=== PATIENT | female | born 1955 | race Hispanic/Latino ===

== ENCOUNTER → 2018-11-05 | Outpatient (CLI) | payer OTHER ==
[~2018-11-05] MED LIST: ALIGN4 MG PO
--- NOTE | 2018-11-05 08:56 | Diagnostic Imaging Report ---
Abdominal ultrasound. History: Epigastric pain. Comparison: None available. Discussion: Transverse and longitudinal images of the abdomen were obtained demonstrating a liver of normal size but diffusely increased echogenicity measuring 12.9 cm in length. There is no focal hepatic abnormality. The portal vein is patent with hepatopetal flow and is within normal limits measuring 8 mm in diameter. The biliary tree is within normal limits with the common bile duct measuring 2 mm in diameter. The gallbladder is absent. The kidneys are normal in size and echogenicity bilaterally without evidence of hydronephrosis, stones, or mass. The right kidney measures 9.9 cm and the left kidney measures 9.3 cm in length. The spleen is normal in size and appearance measuring 8.0 cm in length. The pancreatic head and body are visualized and are normal in appearance. The abdominal aorta and IVC are within normal limits. There is no evidence of free fluid. IMPRESSION: 1. Diffuse fatty infiltration of the liver. 2. Status post cholecystectomy. Otherwise unremarkable abdominal ultrasound. Signed by: Uri Gallardo on 11/05/2018 8:52 AM
--- NOTE | 2018-11-05 09:00 | Diagnostic Imaging Report ---
Pelvic ultrasound. History: Abdominal pain. Comparison: None available. Discussion: Transabdominal evaluation of the pelvis was performed in the transverse and longitudinal planes. The bladder is normal in appearance, with volume of 26 cc. Bilateral ureteral jets are identified. The uterus and adnexa are absent. There is no evidence of an adnexal mass. There is no evidence of free fluid. IMPRESSION: No abnormality identified. Signed by: Uri Gallardo on 11/05/2018 8:57 AM
== END ==
LOC: US 07:07
PROVIDERS: ATTEND Internal Medicine Gastroenterology
DX: R10.13 Epigastric pain (principal)
CPT/HCPCS: 76700; 76856

== ENCOUNTER → 2018-11-17 | Day surgery (SDC) | payer OTHER ==
[~2018-11-17] MED LIST changes: +CARAFATE1 GM/10 ML PO; +FENTANYL CITRATE/PF 100MCG/2 ML INJ ONE; +LANSOPRAZOLE30 MG PO; +LIDOCAINE HCL 2% LOCAL INJ 5 ML SDV VIAL INJ ONE; +MIDAZOLAM HCL 2 MG/2 ML VIAL ONE; +PROPOFOL IV EMULSION 10 MG/ML 50 ML VIAL ONE
--- OUTSIDE RECORDS SUMMARY | 2018-11-17 05:31 | XMS REPORT ---
Author Author Admin, [facility] Address [facility] [address] [place] [address] Phone ;[phone] Allergies, Adverse Reactions, Alerts Allergy Name Reaction Description Start Date Severity Status Provider No Known Allergies Maylin Mcgovern MA Conditions or Problems Problem Name Problem Code Onset Date Status Entry Date Provider Comment Standard Description Annotate Chest discomfort, atypical 786.59 Active Caroline Noriega MD Other chest pain tingling pain radiates from neck to chest, then a cooling sensation radiates out to both arms Neck pain, acute 723.1 Active Caroline Noriega MD Cervicalgia BMI 30.0-30.9 Active Caroline Noriega MD Body Mass Index 30.0-30.9, adult Obesity Active Caroline Noriega MD Obesity, unspecified Abdominal pain 789.00 Active Caroline Noriega MD Abdominal pain, unspecified site Abnormal weight loss 783.21 Active Caroline Noriega MD Loss of weight Arthralgias 719.40 Active Caroline Noriega MD Pain in joint, site unspecified Bone pain 733.90 Active Caroline Noriega MD Disorder of bone and cartilage, unspecified 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 Active Caroline Noriega MD Carcinoma in situ of skin, site unspecified Squamous Cell Carcinoma of the chest Family history of carcinoma of kidney V16.51 Active Caroline Noriega MD Family history of malignant neoplasm of kidney Sister at age 52 Night sweats 780.8 Active Caroline Noriega MD Generalized hyperhidrosis Actinic keratosis 702.0 Active Caroline Noriega MD Actinic keratosis Insomnia, chronic 780.52 Active Caroline Noriega MD Insomnia, unspecified Acid reflux 530.81 Active Caroline Noriega MD Esophageal reflux Black stools 578.1 Active Caroline Noriega MD Blood in stool Itching of skin 698.9 Active Caroline Noriega MD Unspecified pruritic disorder Atrophic vaginitis 627.3 Active Caroline Noriega MD Postmenopausal atrophic vaginitis Hemorrhoids 455.6 Active Caroline Noriega MD Unspecified hemorrhoids without mention of complication Diverticulitis, colon 562.11 Active Caroline Noriega MD Diverticulitis of colon without mention of hemorrhage DEPRESSIVE DISORDER, MAJOR, RECURRENT EPISODE, MODERATE Active Lazaro Zavala FUR WEIGHER Major depressive disorder, recurrent episode, moderate degree R/O Persistent depressive disorder 301.12 Active Lazaro Zavala FUR WEIGHER Chronic depressive personality disorder Dry skin 701.1 Active Caroline Noriega MD Keratoderma, acquired Neoplasm, skin, uncertain behavior 238.2 Active Caroline Noriega MD Neoplasm of uncertain behavior of skin Allergic dermatitis 692.9 Active Caroline Noriega MD Contact dermatitis and other eczema, unspecified cause Vitamin D deficiency 268.9 Active Caroline Noriega MD Unspecified vitamin D deficiency Ankle deformity 736.70 Active Caroline Noriega MD Unspecified deformity of ankle and foot, acquired Oversupination of both ankles Anxiety with depression 300.4 Active Caroline Noriega MD Dysthymic disorder Knee joint pain > 3 months, bilateral 719.46 Active Caroline Noriega MD Pain in joint involving lower leg Dry mouth 527.7 Active Caroline Noriega MD Disturbance of salivary secretion Onychomycosis, toenails 110.1 Active Caroline Noriega MD Dermatophytosis of nail right great toenail black (aspergillus?) and left dystrophic Moore's esophagus 530.85 Active Caroline Noriega MD Moore's esophagus Hiatal hernia 553.3 Active Caroline Noriega MD Diaphragmatic hernia without mention of obstruction or gangrene Stenosis of cervix 622.4 Active Caroline Noriega MD Stricture and stenosis of cervix Colon polyps 211.3 Active Caroline Noriega MD Benign neoplasm of colon Fatty liver 571.8 Active Caroline Noriega MD Other chronic nonalcoholic liver disease Screening mammogram V76.12 Active Caroline Noriega MD Other screening mammogram [id number] exam V72.3 Active Caroline Noriega MD Special investigations and examinations - Gynecological examination Diverticulitis, acute 562.11 Inactive Caroline Noriega MD Diverticulitis of colon without mention of hemorrhage Diverticulitis, acute ICD-562.11 Inactive Caroline Noriega MD Abdominal pain, generalized 789.07 Inactive Caroline Noriega MD Abdominal pain, generalized Abdominal pain, right upper quadrant ICD-789.01 Inactive Caroline Noriega MD Diarrhea ICD-787.91 Inactive Caroline Noriega MD Blood in stool 578.1 Inactive Caroline Noriega MD Blood in stool BMI 28.0-28.9 Inactive Caroline Noriega MD Overweight Inactive Caroline Noriega MD Flank pain, left ICD-789.09 Inactive Caroline Noriega MD Dysuria 788.1 Inactive Caroline Noriega MD Dysuria Dysuria ICD-788.1 Inactive Caroline Noriega MD Bruise 924.9 Inactive Caroline Noriega MD Contusion of unspecified site Bruise ICD-924.9 Inactive Caroline Noriega MD Chest pain, intermittent ICD-786.50 Inactive Caroline Noriega MD Eye pain, left ICD-379.91 Inactive Caroline Noriega MD Gastroparesis 536.3 Inactive Caroline Noriega MD Gastroparesis Gastroparesis ICD-536.3 Inactive Caroline Noriega MD Hair loss ICD-704.00 Inactive Caroline Noriega MD Diabetes, Screening for V77.1 Inactive Azar Solano MD Screening for diabetes mellitus Diabetes, Screening for ICD-V77.1 Inactive Azar Solano MD UTI ICD-599.0 Inactive Caroline Noriega MD Ingrown toenail, left ICD-703.0 Inactive Azar Solano MD Thickened endometrium 793.5 Inactive Caroline Noriega MD Nonspecific (abnormal) findings on radiological and other examination of genitourinary organs BMI 32.0-32.9 Inactive Caroline Noriega MD Contact dermatitis due to poison carter ICD-692.6 Inactive Azar Solano MD Obesity Inactive Caroline Noriega MD Thyroid stimulating hormone, abnormal ICD-246.9 Inactive Caroline Noriega MD Dermatitis ICD-692.9 Inactive Azar Solano MD Dysuria 788.1 Inactive Caroline Noriega MD Dysuria Dysuria ICD-788.1 Inactive Caroline Noriega MD Fatigue ICD-780.79 Inactive Caroline Noriega MD Gastritis ICD-535.50 Inactive Caroline Noriega MD Pelvic pain, right ICD-789.09 Inactive Caroline Noriega MD Abdominal pain, right upper quadrant 789.01 Resolved Caroline Noriega MD Abdominal pain, right upper quadrant Diarrhea 787.91 Resolved Caroline Noriega MD Diarrhea BMI 28.0-28.9 Resolved Caroline Noriega MD Body Mass Index 28.0-28.9, adult Overweight Resolved Caroline Noriega MD Overweight Flank pain, left 789.09 Resolved Caroline Noriega MD Abdominal pain, other specified site; multiple sites Chest pain, intermittent 786.50 Resolved Caroline Noriega MD Unspecified chest pain Eye pain, left 379.91 Resolved Caroline Noriega MD Pain in or around eye Hair loss 704.00 Resolved Caroline Noriega MD Alopecia, unspecified UTI 599.0 Resolved Caroline Noriega MD Urinary tract infection, site not specified Ingrown toenail, left 703.0 Resolved Azar Solano MD Ingrowing nail BMI 32.0-32.9 Resolved Caroline Noriega MD Body Mass Index 32.0-32.9, adult Contact dermatitis due to poison carter 692.6 Resolved Azar Solano MD Contact dermatitis and other eczema due to plants [except food] Obesity Resolved Caroline Noriega MD Obesity, unspecified Thyroid stimulating hormone, abnormal 246.9 Resolved Caroline Noriega MD Unspecified disorder of thyroid Dermatitis 692.9 Resolved Azar Solano MD Contact dermatitis and other eczema, unspecified cause nonspecific papules on hands and legs Fatigue 780.79 Resolved Caroline Noriega MD Other malaise and fatigue Gastritis 535.50 Resolved Caroline Noriega MD Unspecified gastritis and gastroduodenitis, without mention of hemorrhage Intermittent, with spicy food, not on medication Pelvic pain, right 789.09 Resolved Caroline Noriega MD Abdominal pain, other specified site; multiple sites Medication List Medication Instructions Start Date Stop Date Generic Name NDC Status Provider Patient Instruction CITALOPRAM HYDROBROMIDE 10 MG/5ML ORAL SOLUTION Take 10mL (20mg) By Mouth daily for anxiety CITALOPRAM HYDROBROMIDE 35196878440 Active Caroline Noriega MD Active CITALOPRAM HYDROBROMIDE 20 MG ORAL TABLET 1 tab by mouth daily for anxiety CITALOPRAM HYDROBROMIDE 82135024551 Active Caroline Noriega MD Active CIPRO 500 MG ORAL TABLET take one By Mouth Twice a Day for diverticulitis CIPRO 500 MG ORAL TABLET 410145 CIPROFLOXACIN HCL Inactive METRONIDAZOLE 500 MG ORAL TABLET Take one By Mouth Three Times a Day for 10 days for diverticulitis METRONIDAZOLE 500 MG ORAL TABLET 612983 METRONIDAZOLE Inactive MIRALAX ORAL POWDER Take one dose mixed with water or juice By Mouth daily As Needed for constipation MIRALAX ORAL POWDER 736800 POLYETHYLENE GLYCOL 3350 Inactive LANSOPRAZOLE 30 MG ORAL CAPSULE DELAYED RELEASE Take one tablet By Mouth Every Day LANSOPRAZOLE 30 MG ORAL CAPSULE DELAYED RELEASE 031353 LANSOPRAZOLE Inactive LANSOPRAZOLE 30 MG ORAL CAPSULE DELAYED RELEASE TK 1 C PO QD LANSOPRAZOLE 30 MG ORAL CAPSULE DELAYED RELEASE 424862 LANSOPRAZOLE Inactive FLUOROURACIL 5 % EXTERNAL CREAM APPLY TOPICALLY TO AFFECTED AREA TWICE A DAY FOR 2 WEEKS FLUOROURACIL 5 % EXTERNAL CREAM 805595 FLUOROURACIL Inactive FLUOROURACIL 5 % EXTERNAL CREAM APPLY TOPICALLY TO AFFECTED AREA TWICE A DAY FOR 2 WEEKS FLUOROURACIL 5 % EXTERNAL CREAM 241420 FLUOROURACIL Inactive ALIGN 4 MG ORAL CAPSULE One By Mouth daily for stomach ALIGN 4 MG ORAL CAPSULE PROBIOTIC PRODUCT Inactive VITAMIN B12 TABLET VITAMIN B12 TABLET CYANOCOBALAMIN TABS Inactive VITAMIN D3 TABLET VITAMIN D3 TABLET CHOLECALCIFEROL TABS Inactive TRIAMCINOLONE ACETONIDE 0.1 % EXTERNAL CREAM apply to affected area twice a day As Needed for itching and rash TRIAMCINOLONE ACETONIDE 0.1 % EXTERNAL CREAM 8334887 TRIAMCINOLONE ACETONIDE Inactive PANTOPRAZOLE SODIUM 40 MG ORAL TABLET DELAYED RELEASE Take one By Mouth Every Morning for acid reflux PANTOPRAZOLE SODIUM 40 MG ORAL TABLET DELAYED RELEASE 628100 PANTOPRAZOLE SODIUM Inactive ALIGN 4 MG ORAL CAPSULE One By Mouth daily ALIGN 4 MG ORAL CAPSULE PROBIOTIC PRODUCT Inactive LANSOPRAZOLE 30 MG ORAL CAPSULE DELAYED RELEASE 1 tab By Mouth Every day LANSOPRAZOLE 30 MG ORAL CAPSULE DELAYED RELEASE 305751 LANSOPRAZOLE Inactive MACROBID 100 MG ORAL CAPSULE 1 by mouth twice a day MACROBID 100 MG ORAL CAPSULE 7045303 NITROFURANTOIN MONOHYD MACRO Inactive ACETAMINOPHEN-CODEINE #3 300-30 MG ORAL TABLET 1 tab By Mouth Every 4 hrs As Needed pain ACETAMINOPHEN-CODEINE #3 300-30 MG ORAL TABLET ACETAMINOPHEN-CODEINE Inactive MEDROL 4 MG ORAL TABLET THERAPY PACK use as directed MEDROL 4 MG ORAL TABLET THERAPY PACK 612436 METHYLPREDNISOLONE Inactive TRIAMCINOLONE ACETONIDE 0.1 % EXTERNAL CREAM apply to affected area twice a day As Needed for rash TRIAMCINOLONE ACETONIDE 0.1 % EXTERNAL CREAM 8904494 TRIAMCINOLONE ACETONIDE Inactive CIPRO 500 MG ORAL TABLET take one By Mouth Twice a Day for diverticulitis CIPROFLOXACIN HCL 57856215008 No Longer Active Caroline Noriega MD Active METRONIDAZOLE 500 MG ORAL TABLET Take one By Mouth Three Times a Day for 10 days for diverticulitis METRONIDAZOLE 96111075489 No Longer Active Caroline Noriega MD Active MIRALAX ORAL POWDER Take one dose mixed with water or juice By Mouth daily As Needed for constipation POLYETHYLENE GLYCOL 3350 [id number] No Longer Active Caroline Noriega MD Active LANSOPRAZOLE 30 MG ORAL CAPSULE DELAYED RELEASE Take one tablet By Mouth Every Day LANSOPRAZOLE 40994874979 No Longer Active Caroline Noriega MD Active LANSOPRAZOLE 30 MG ORAL CAPSULE DELAYED RELEASE TK 1 C PO QD LANSOPRAZOLE 61848105908 No Longer Active Caroline Noriega MD Active FLUOROURACIL 5 % EXTERNAL CREAM APPLY TOPICALLY TO AFFECTED AREA TWICE A DAY FOR 2 WEEKS FLUOROURACIL 36757075895 No Longer Active Caroline Noriega MD Active FLUOROURACIL 5 % EXTERNAL CREAM APPLY TOPICALLY TO AFFECTED AREA TWICE A DAY FOR 2 WEEKS FLUOROURACIL 22866282165 No Longer Active Caroline Noriega MD Active ALIGN 4 MG ORAL CAPSULE One By Mouth daily for stomach PROBIOTIC PRODUCT 38113541407 No Longer Active Caroline Noriega MD Active VITAMIN B12 TABLET CYANOCOBALAMIN TABS 38016002436 No Longer Active Caroline Noriega MD Active VITAMIN D3 TABLET CHOLECALCIFEROL TABS 69009595858 No Longer Active Caroline Noriega MD Active TRIAMCINOLONE ACETONIDE 0.1 % EXTERNAL CREAM apply to affected area twice a day As Needed for itching and rash TRIAMCINOLONE ACETONIDE 78254144401 No Longer Active Caroline Noriega MD Active PANTOPRAZOLE SODIUM 40 MG ORAL TABLET DELAYED RELEASE Take one By Mouth Every Morning for acid reflux PANTOPRAZOLE SODIUM 39046127916 No Longer Active Caroline Noriega MD Active ALIGN 4 MG ORAL CAPSULE One By Mouth daily PROBIOTIC PRODUCT 40804899592 No Longer Active Caroline Noriega MD Active LANSOPRAZOLE 30 MG ORAL CAPSULE DELAYED RELEASE 1 tab By Mouth Every day LANSOPRAZOLE 88008977086 No Longer Active Caroline Noriega MD Active MACROBID 100 MG ORAL CAPSULE 1 by mouth twice a day NITROFURANTOIN MONOHYD MACRO 03854827591 No Longer Active Azar Solano MD Active PANTOPRAZOLE SODIUM 40 MG ORAL TABLET DELAYED RELEASE 1 tab By Mouth Every day PANTOPRAZOLE SODIUM 75929759549 No Longer Active Azar Solano MD Active ACETAMINOPHEN-CODEINE #3 300-30 MG ORAL TABLET 1 tab By Mouth Every 4 hrs As Needed pain ACETAMINOPHEN-CODEINE 20474567942 No Longer Active Azar Solano MD Active MEDROL 4 MG ORAL TABLET THERAPY PACK use as directed METHYLPREDNISOLONE 90217189242 No Longer Active Azar Solano MD Active TRIAMCINOLONE ACETONIDE 0.1 % EXTERNAL CREAM apply to affected area twice a day As Needed for rash TRIAMCINOLONE ACETONIDE 39844788338 No Longer Active Azar Solano MD Active Vital Signs Date Name Value Unit Range Description blood pressure, diastolic 78 mm[Hg] BP muñoz blood pressure, systolic 122 mm[Hg] BP sys height E&M 55 [in_us] Bdy height pulse rate E&M 89 /min Heart rate respiratory rate E&M 16 /min Resp rate temperature E&M 98.0 [degF] Body temperature weight E&M 130.20 [lb_av] Weight Measured blood pressure, diastolic 80 mm[Hg] BP muñoz blood pressure, systolic 135 mm[Hg] BP sys height E&M 55 [in_us] Bdy height pulse rate E&M 74 /min Heart rate respiratory rate E&M 18 /min Resp rate temperature E&M 97.8 [degF] Body temperature weight E&M 130.38 [lb_av] Weight Measured blood pressure, diastolic 87 mm[Hg] BP muñoz blood pressure, systolic 152 mm[Hg] BP sys height E&M 55 [in_us] Bdy height pulse rate E&M 85 /min Heart rate respiratory rate E&M 21 /min Resp rate temperature E&M 98.1 [degF] Body temperature weight E&M 136.20 [lb_av] Weight Measured blood pressure, diastolic 84 mm[Hg] BP muñoz blood pressure, systolic 126 mm[Hg] BP sys height E&M 55 [in_us] Bdy height pulse rate E&M 84 /min Heart rate respiratory rate E&M 17 /min Resp rate temperature E&M 98.0 [degF] Body temperature weight E&M 138.40 [lb_av] Weight Measured blood pressure, diastolic 75 mm[Hg] BP muñoz blood pressure, systolic 125 mm[Hg] BP sys height E&M 55 [in_us] Bdy height pulse rate E&M 68 /min Heart rate respiratory rate E&M 18 /min Resp rate temperature E&M 98.3 [degF] Body temperature weight E&M 142.13 [lb_av] Weight Measured blood pressure, diastolic 84 mm[Hg] BP muñoz blood pressure, systolic 135 mm[Hg] BP sys height E&M 55 [in_us] Bdy height pulse rate E&M 74 /min Heart rate respiratory rate E&M 18 /min Resp rate temperature E&M 97.8 [degF] Body temperature weight E&M 139.60 [lb_av] Weight Measured blood pressure, diastolic 75 mm[Hg] BP muñoz blood pressure, systolic 115 mm[Hg] BP sys height E&M 55 [in_us] Bdy height pulse rate E&M 76 /min Heart rate respiratory rate E&M 20 /min Resp rate temperature E&M 97.4 [degF] Body temperature weight E&M 138.20 [lb_av] Weight Measured blood pressure, diastolic, second observation 79 mm[Hg] BP muñoz blood pressure, diastolic 79 mm[Hg] BP muñoz blood pressure, systolic, second observation 120 mm[Hg] BP sys blood pressure, systolic 120 mm[Hg] BP sys height E&M 58 [in_us] Bdy height pulse rate E&M 80 /min Heart rate respiratory rate E&M 18 /min Resp rate temperature E&M 98.3 [degF] Body temperature weight E&M 134.80 [lb_av] Weight Measured blood pressure, diastolic 76 mm[Hg] BP muñoz blood pressure, systolic 109 mm[Hg] BP sys height E&M 58 [in_us] Bdy height pulse rate E&M 82 /min Heart rate respiratory rate E&M 17 /min Resp rate temperature E&M 98.3 [degF] Body temperature weight E&M 129.80 [lb_av] Weight Measured Diagnostic Results Date Name Value Unit Range Description Lab Report: CBC With Differential/Platelet, Comp. Metabolic Panel (14), ... - Chemistry thyroid stimulating hormone, serum 4.260 u[iU]/mL 0.450-4.500 Lab Report: Stool Culture, Result, Stool Culture, Result, Stool Culture - Lab Campybolacter culture, stool or rectal swab Final report Lab Report: UA/M w/rflx Culture, Routine, Microscopic Examination, UA/M ... - Urinalysis WBC urine on microscopy None seen /hpf {Cells}/[HPF] 0 - 5 Lab Report: CBC With Differential/Platelet, Comp. Metabolic Panel (14), ... - Chemistry very low density lipoproteins 41 mg/dL 5-40 Lab Report: CBC With Differential/Platelet, PT and PTT, Vitamin D, 25-Hy ... - Coagulation prothrombin time (patient) 9.7 s 9.1-12.0 Lab Report: UA/M w/rflx Culture, Routine, Microscopic Examination, UA/M ... - Urinalysis epithelial cells, urine 0-10 /[LPF] 0 - 10 Lab Report: CBC With Differential/Platelet, Comp. Metabolic Panel (14), ... - Chemistry chloride, serum 105 mmol/L 96-106 urea nitrogen, blood 5 mg/dL 8-27 Lab Report: UA/M w/rflx Culture, Routine, Microscopic Examination, UA/M ... - Urinalysis leukocyte esterase, urine, by dipstick Negative Negative Lab Report: QuantiFERON-TB Gold Plus, QuantiFERON-TB Gold Plus, QuantiFE ... - Hematology Quantiferon Gold TB blood test for tuberculosis screening Negative Negative Lab Report: CBC With Differential/Platelet, Comp. Metabolic Panel (14), ... - Hematology mean corpuscular hemoglobin concentration, RBC 32.3 G/DL % 31.5-35.7 erythrocyte (RBC) count 4.63 X10E6/UL 10*6/mm3 3.77-5.28 Office Visit: Acute Visit - [facility] - Urinalysis nitrite, urine, semiquantitative negative Lab Report: CBC With Differential/Platelet, Comp. Metabolic Panel (14), ... - Serology hepatitis C antibody, serum <0.1 0.0-0.9 Lab Report: UA/M w/rflx Culture, Routine, Microscopic Examination, UA/M ... - Urinalysis urine color Yellow Yellow Lab Report: CBC With Differential/Platelet, Comp. Metabolic Panel (14), ... - Chemistry Absolute Neutrophils 3.4 X10E3/UL 10*3/uL 1.4-7.0 Lab Report: CBC With Differential/Platelet, Comp. Metabolic Panel (14), ... - Hematology erythrocyte sedimentation rate 16 mm/h 0-40 Lab Report: UA/M w/rflx Culture, Routine, Microscopic Examination, UA/M ... - Urinalysis bilirubin, urine Negative Negative Office Visit: Acute Visit - [facility] Chemistry LDL cholesterol, serum 125 mg/dL Lab Report: CBC With Differential/Platelet, Comp. Metabolic Panel (14), ... - Chemistry urea nitrogen/creatinine ratio, serum 8 12-28 Lab Report: CBC With Differential/Platelet, Comp. Metabolic Panel (14), ... - Hematology mean corpuscular volume, RBC 91 fL 79-97 Office Visit: Acute Visit - [facility] Chemistry HDL cholesterol, serum 51 mg/dL Lab Report: CBC With Differential/Platelet, Comp. Metabolic Panel (14), ... - Hematology monocytes as percent of blood leukocytes 4 % Not Estab. Lab Report: CBC With Differential/Platelet, Comp. Metabolic Panel (14), ... - Chemistry albumin/globulin ratio, serum 2.0 1.2-2.2 creatinine, serum 0.65 mg/dL 0.57-1.00 Office Visit: Acute Visit - [facility] Chemistry cholesterol, serum 197 mg/dL Lab Report: CBC With Differential/Platelet, Comp. Metabolic Panel (14), ... - Chemistry bilirubin, serum, total 0.6 mg/dL 0.0-1.2 Lab Report: CBC With Differential/Platelet, Comp. Metabolic Panel (14), ... - Hematology Eosinophil Absolute Count 0.0 X10E3/UL 10*3/uL 0.0-0.4 Lab Report: UA/M w/rflx Culture, Routine, Microscopic Examination, UA/M ... - Urinalysis appearance, urine Clear Clear Office Visit: [facility] - Urinalysis blood in urine (hemoglobin) by dipstick negative Lab Report: Chlamydia/GC Amplification - Lab chlamydia DNA probe Negative Negative Lab Report: CBC With Differential/Platelet, Comp. Metabolic Panel (14), ... - Chemistry aspartate aminotransferase (SGOT), serum 16 U/L 0-40 Lab Report: CBC With Differential/Platelet, Comp. Metabolic Panel (14), ... - Hematology red blood cell distribution width 13.9 % 12.3-15.4 Lab Report: UA/M w/rflx Culture, Routine, Microscopic Examination, UA/M ... - Urinalysis urinalysis, microscopic examination MICRON Lab Report: CBC With Differential/Platelet, Comp. Metabolic Panel (14), ... - Hematology leukocyte count, blood 4.5 X10E3/UL 10*3/mm3 3.4-10.8 Lab Report: UA/M w/rflx Culture, Routine, Microscopic Examination, UA/M ... - Urinalysis pH, urine, semiquantitative 7.0 5.0-7.5 Lab Report: CBC With Differential/Platelet, Comp. Metabolic Panel (14), ... - Chemistry potassium, serum 3.8 mmol/L 3.5-5.2 albumin, serum 4.7 g/dL 3.6-4.8 immature granulocytes, percentage of total cells, blood 0 % Not Estab. Lab Report: CBC With Differential/Platelet, Comp. Metabolic Panel (14), ... - Hematology lymphocyte count, blood, automated 0.9 X10E3/UL 10*3/mm3 0.7-3.1 hematocrit, blood 42.1 % 34.0-46.6 Lab Report: Chlamydia/GC Amplification - Microbiology Neisseria gonorrhoeae DNA probe Negative Negative Lab Report: CBC With Differential/Platelet, Comp. Metabolic Panel (14), ... - Chemistry sodium, serum 144 mmol/L 134-144 Lab Report: Urine Culture, Routine, Result - Urinalysis urine culture MUG Lab Report: CBC With Differential/Platelet, Comp. Metabolic Panel (14), ... - Hematology neutrophils as percent of blood leukocytes 74 % Not Estab. Lab Report: Stool Culture, Result, Stool Culture, Result, Stool Culture - Toxicology culture, salmonella and shigella, stool Final report Lab Report: CBC With Differential/Platelet, Comp. Metabolic Panel (14), ... - Hematology basophils as percent of blood leukocytes 0 % Not Estab. Lab Report: UA/M w/rflx Culture, Routine, Microscopic Examination, UA/M ... - Chemistry specific gravity, body fluid 1.008 1.005-1.030 RBC, Urine None seen /hpf /[HPF] 0 - 2 Lab Report: UA/M w/rflx Culture, Routine, Microscopic Examination, UA/M ... - Urinalysis protein, urine, semiquantitative (dipstick) Negative Negative/Trace Lab Report: CBC With Differential/Platelet, Comp. Metabolic Panel (14), ... - Serology rapid plasma reagin antibody, serum Non Reactive Non Reactive Lab Report: UA/M w/rflx Culture, Routine, Microscopic Examination, UA/M ... - Microbiology microscopic exam See below: Lab Report: CBC With Differential/Platelet, Comp. Metabolic Panel (14), ... - Chemistry carbon dioxide, venous blood 24 mmol/L 20-29 Lab Report: UA/M w/rflx Culture, Routine, Microscopic Examination, UA/M ... - Chemistry nitrate, urine Negative Negative Office Visit: Acute Visit - [facility] - Chemistry triglyceride, serum, fasting 107 mg/dL Lab Report: CBC With Differential/Platelet, Comp. Metabolic Panel (14), ... - Chemistry calcium, serum 9.7 mg/dL 8.7-10.3 alanine aminotransferase (SGPT), serum 16 U/L 0-32 Lab Report: CBC With Differential/Platelet, Comp. Metabolic Panel (14), ... - Hematology mean corpuscular hemoglobin, RBC 29.4 pg 26.6-33.0 Lab Report: UA/M w/rflx Culture, Routine, Microscopic Examination, UA/M ... - Urinalysis bacteria, urine microscopy None seen None seen/Few Office Visit: Acute Visit - [facility] - Urinalysis specific gravity, urine 1.005 Lab Report: CBC With Differential/Platelet, Comp. Metabolic Panel (14), ... - Chemistry protein, total, serum 7.1 g/dL 6.0-8.5 alkaline phosphatase, serum 90 U/L 39-117 Lab Report: CBC With Differential/Platelet, Comp. Metabolic Panel (14), ... - Hematology hemoglobin, blood 13.6 g/dL 11.1-15.9 lymphocytes as percent of blood leukocytes 21 % Not Estab. Lab Report: CBC With Differential/Platelet, PT and PTT, Vitamin D, 25-Hy ... - Hematology activated partial thromboplastin time (aPTT) 29 s 24-33 Lab Report: Comp. Metabolic Panel (14), Hemoglobin A1c, Urine Culture, R ... - Chemistry hemoglobin A1C, blood, as % of total hemoglobin 5.4 % 4.8-5.6 Lab Report: UA/M w/rflx Culture, Routine, Microscopic Examination, UA/M ... - Urinalysis glucose, urine, semiquantitative Negative Negative Lab Report: CBC With Differential/Platelet, Comp. Metabolic Panel (14), ... - Genetics/fertility eGFR if 109 mL/min/1.73m2 >59 Lab Report: CBC With Differential/Platelet, Comp. Metabolic Panel (14), ... - Hematology basophil count, absolute 0.0 x10E3/uL 0.0-0.2 Lab Report: TSH+Free T4, Sedimentation Rate-Westergren - Chemistry thyroxine, serum, free 1.49 ng/dL 0.82-1.77 Lab Report: CBC With Differential/Platelet, PT and PTT, Vitamin D, 25-Hy ... - Coagulation international normalized ratio (INR) 0.9 0.8-1.2 Lab Report: CBC With Differential/Platelet, Comp. Metabolic Panel (14), ... - Chemistry globulin, serum 2.4 1.5-4.5 Estimated Glomerular Filtration Rate (calc) 94 mL/min/1.73m2 >59 vitamin D 25-hydroxy, serum 33.1 ng/mL 30.0-100.0 Lab Report: UA/M w/rflx Culture, Routine, Microscopic Examination, UA/M ... - Basic Occult Blood, urine Negative Negative Lab Report: Stool Culture, Result, Stool Culture, Result, Stool Culture - Toxicology Shiga Toxin EIA Negative Negative Lab Report: Thyroxine (T4), Triiodothyronine (T3) - Chemistry thyroxine, serum, total 9.1 ug/dL 4.5-12.0 Lab Report: CBC With Differential/Platelet, Comp. Metabolic Panel (14), ... - Hematology eosinophils as percent of blood leukocytes 1 % Not Estab. Lab Report: Thyroxine (T4), Triiodothyronine (T3) - Chemistry triiodothyronine (T3), serum 113 ng/dL 71-180 Lab Report: CBC With Differential/Platelet, Comp. Metabolic Panel (14), ... - Chemistry blood glucose, random 110 mg/dL 65-99 Lab Report: UA/M w/rflx Culture, Routine, Microscopic Examination, UA/M ... - Urinalysis urobilinogen, urine, semiquantitative (dipstick) 0.2 0.2-1.0 Lab Report: CBC With Differential/Platelet, Comp. Metabolic Panel (14), ... - Hematology monocyte count, blood, automated 0.2 X10E3/UL 10*3/uL 0.1-0.9 platelet count 180 X10E3/UL 10*3/mm3 150-450 Lab Report: UA/M w/rflx Culture, Routine, Microscopic Examination, UA/M ... - Urinalysis ketones, urine, by test strip Negative Negative Encounters Date Encounter Provider Code Facility 14:12:10 CDT Est Patient Detailed - [id number] Caroline Noriega MD CPT-96410 [facility] 10:00:12 CDT Est Patient Detailed - 47879 Caroline Noriega MD CPT-02524 [facility] 16:52:03 CDT Est Patient Exp Problem - 47393 Caroline Noriega MD CPT-12888 [facility] 06:39:17 CDT Est Patient Detailed - 20160 Caroline Noriega MD CPT-97846 [facility] 17:20:23 CDT Est Patient Exp Problem - 18559 Caroline Noriega MD CPT-62432 [facility] 08:05:19 CDT Est Patient Exp Problem - 57422 Caroline Noriega MD CPT-70299 [facility] 08:36:25 CDT Est Patient Exp Problem - 46056 Caroline Noriega MD CPT-22904 [facility] 23:42:39 CDT Est Patient Exp Problem - 53796 Caroline Noriega MD CPT-69411 [facility] 23:07:51 CDT Est Patient Detailed - 10726 Caroline Noriega MD CPT-23704 [facility] 09:53:32 CDT Est Patient Detailed - 20583 Caroline Noriega MD CPT-09186 [facility] 02:04:51 CDT Est Patient Exp Problem - 17066 Caroline Noriega MD CPT-72063 [facility] 15:04:40 [employer] Est Patient Exp Problem - 13847 Caroline Noriega MD CPT-91749 [facility] 00:23:07 CDT Est Patient Exp Problem - 90129 Caroline Noriega MD CPT-46251 [facility] 08:49:35 CDT Est Patient Detailed - 19190 Caroline Noriega MD CPT-00135 [facility] 14:59:44 CDT Est Patient Detailed - 13684 Caroline Noriega MD CPT-19748 [facility] 13:50:43 [employer] Est Patient Exp Problem - 87867 Azar Solano MD CPT-45334 [facility] 15:58:33 [employer] Est Patient Exp Problem - 54577 Azar Solano MD CPT-60855 [facility] 15:01:26 [employer] Est Patient Exp Problem - 47925 Azar Solano MD CPT-75017 [facility] 09:35:27 [employer] Est Patient Exp Problem - 65060 Azar Solano MD CPT-11179 [facility] 16:48:15 CDT Est Patient Exp Problem - 20597 Azar Solano MD CPT-99856 [facility] 21:10:32 CDT Est Patient Problem Focus - 79679 Caroline Noriega MD CPT-18936 [facility] Procedures Code Procedure Name Date Entry Date Standard Description CPT-09128 EKG - 12 Leads with Interpretation and Report 14:12:10 CDT CPT-70319 Psychotherapy 30 (16-37*) min - 63352 (with patient and/or family member) 13:51:15 CDT CPT-96509 Psychotherapy 45 (38-52*) min - 66925 (with patient and/or family member) 10:27:18 CDT CPT-29799 Psychotherapy 45 (38-52*) min - 91076 (with patient and/or family member) 07:40:00 CDT CPT-19894 Urinalysis - Dip only - In House 11:13:23 CDT CPT-41581 Psychotherapy 45 (38-52*) min - 78575 (with patient and/or family member) 15:27:30 [employer] CPT-01415 Diagnostic evaluation (no medical) - 96300 08:23:51 CDT CPT-40285 EKG - Tracing Only 14:59:44 CDT CPT-58997 Urinalysis - Dip only - In House 13:50:42 [employer] CPT-32273 Excision of nail & nail matrix,partial or complete, w/amput of tuft-distal phlnx 15:01:27 [employer] CPT-03428 IM or SQ Injection 16:48:16 CDT CPT-J2920 Injection, methylprednisolone sodium succinate, up to 40 mg 16:48:15 CDT CPT-48916 New Patient Well Exam (40 - 64 Yrs) - [id number] 21:10:32 CDT CPT-10227 Urinalysis - Dip only - In House 10:28:05 CDT
--- OUTSIDE RECORDS SUMMARY | 2018-11-17 05:31 | XMS REPORT ---
Author [facility] Address Unknown Phone Unavailable Care Team Providers Care Art Supervisor Name Role Phone COREY BUTT Unavailable Unavailable Problems This patient has no known problems. Allergies, Adverse Reactions, Alerts This patient has no known allergies or adverse reactions. Medications This patient has no known medications. Encounters Start Date/Time End Date/Time Encounter Type Admission Type Attending [facility] Care Facility Care Department Encounter ID 2018-11-24 00:00:00 2018-11-24 00:00:00 Outpatient [facility] [id number] 2018-10-23 11:29:08 2018-10-23 11:29:08 Emergency [facility] [id number] 2018-10-19 14:31:43 2018-10-19 14:31:43 Emergency [facility] [id number] 2018-10-19 13:17:07 2018-10-19 13:17:07 Emergency [facility] [id number] Results Test Description Test Time Test Comments Text Results Atomic Results Result Comments US PELVIS COMPLETE NON OB 2018-11-05 08:53:[address] [address] Patient Name: MICHELLE LANCE MR #: [id number] : 1955 Age/Sex: 63/F Req #: [id number] Adm Physician: Ordered by: COREY BUTT MD Report #: [id number] Location: US Room/Bed: Procedure: US/US PELVIS COMPLETE NON OB Exam Date: 11/05/18 Exam Time: 08 REPORT STATUS: Signed Pelvic ultrasound. History: Abdominal pain. Comparison: None available. Discussion: Transabdominal evaluation of the pelvis was performed in the transverse and longitudinal planes. The bladder is normal in appearance, with volume of 26 cc. Bilateral ureteral jets are identified. The uterus and adnexa are absent. There is no evidence of an adnexal mass. There is no evidence of free fluid. IMPRESSION: No abnormality identified. Signed by: Uri Gallardo on 11/05/2018 8:57 AM Dictated By: URI GALLARDO MD 6 Transcribed By: TERRY on 11/05/18856 COPY TO: COREY BUTT MD US ABDOMEN COMPLETE 2018-11-05 08:51:00 [place] [address] Patient Name: MICHELLE LANCE MR #: [id number] : 1955 Age/Sex: 63/F Req #: [id number] Adm Physician: Ordered by: COREY BUTT MD Report #: [id number] Location: Room/Bed: Procedure: US/US ABDOMEN COMPLETE Exam Date: 11/05/18 Exam Time: 804 REPORT STATUS: Signed Abdominal ultrasound. History: Epigastric pain. Comparison: None available. Discussion: Transverse and longitudinal images of the abdomen were obtained demonstrating a liver of normal size but diffusely increased echogenicity measuring 12.9 cm in length. There is no focal hepatic abnormality. The portal vein is patent with hepatopetal flow and is within normal limits measuring 8 mm in diameter. The biliary tree is within normal limits with the common bile duct measuring 2 mm in diameter. The gallbladder is absent. The kidneys are normal in size and echogenicity bilaterally without evidence of hydronephrosis, stones, or mass. The right kidney measures 9.9 cm and the left kidney measures 9.3 cm in length. The spleen is normal in size and appearance measuring 8.0 cm in length. The pancreatic head and body are visualized and are normal in appearance. The abdominal aorta and IVC are within normal limits. There is no evidence of free fluid. IMPRESSION: 1. Diffuse fatty infiltration of the liver. 2. Status post cholecystectomy. Otherwise unremarkable abdominal ultrasound. Signed by: Uri Gallardo on 11/05/2018 8:52 AM Dictated By: URI GALLARDO MD E lectronically Signed By: URI GALLARDO MD on 11/05/18851 Transcribed By: TERRY on 11/05/18851 COPY TO: COREY BUTT MD
--- NOTE | 2018-11-17 07:05 | NUR ---
SPIRITUAL CARE - Pre-Surgery Assessment: Pt in bed. Pt's at bedside. Pt reported supportive attention from family and friends. Intervention: I provided pastoral presence, hospitality, prayer, and sympathetic listening. I acquainted pt with availability of terminal superintendent while hospitalized. Outcome: Pt expressed appreciation for visit. No need for follow up indicated at this time. CRISTY [facility] Spiritual Care Department O: [phone] Pager: [phone] ([phone] number calling from)
[2018-11-17 09:15] VITALS: BP 137/84
== END | disposition home or self-care (01) ==
LOC: OR 05:22
PROVIDERS: ATTEND Internal Medicine Gastroenterology
DX: K29.70 Gastritis, unspecified, without bleeding (principal); D12.0 Benign neoplasm of cecum; K21.9 Gastro-esophageal reflux disease without esophagitis; K44.9 Diaphragmatic hernia without obstruction or gangrene; K57.30 Diverticulosis of large intestine without perforation or abscess without bleeding; K64.8 Other hemorrhoids; Z01.810 Encounter for preprocedural cardiovascular examination; Z85.828 Personal history of other malignant neoplasm of skin; Z80.0 Family history of malignant neoplasm of digestive organs
CPT/HCPCS: 43239; 45378; 45385; 93005; J2001; J2250; J3010